=== PATIENT | female | born 1965 | race Caucasian/White ===

== ENCOUNTER 2020-07-07 05:49 | Day surgery (SDC) | payer BC, OTHER ==
[2020-07-07] MEDS ORDERED: Cyanocobalamin (Vitamin B12) 1,000 MCG/ML SDV IM ONE (06:15)
[2020-07-07] MEDS ORDERED: Propofol 200 MG/20 ML SDV ONE (06:55)
[2020-07-07] MEDS ORDERED: fentaNYL 100 MCG/2 ML SDV ONE (06:56)
[2020-07-07] MEDS ORDERED: Midazolam 1 MG/ML 2 ML SDV ONE (06:56)
[2020-07-07] MEDS ORDERED: Lactated Ringers 1,000 ML IV SCH (07:00)
[2020-07-07] MEDS ORDERED: Glycopyrrolate 0.2 MG/ML 2 ML SDV IVPUSH ONE (07:15)
[2020-07-07] MEDS ORDERED: MVI, Adult with Vitamin K 10 ML, Thiamine 200 MG, Chromium/Copper/Mang/Selen/Zn 1 ML in... IV ONE ×4 (08:00)
[2020-07-07] MEDS ORDERED: Sodium Chloride 0.9% 1,000 ML IV SCH (09:45)
[2020-07-07] MEDS ORDERED: diphenhydrAMINE 50 MG/ML SDV IVPUSH PRN (09:45)
[2020-07-07] MEDS ORDERED: Hydrocortisone Sodium Succinate 100 MG/2 ML SDV IVPUSH PRN (09:45)
[2020-07-07] MEDS ORDERED: Famotidine 20 MG/2 ML SDV IVPUSH PRN (09:45)
--- NOTE | 2020-07-15 15:35 | OR ---
DATE OF PROCEDURE: 07/07/2020 SURGEON: Ricky Singh MD PREOPERATIVE DIAGNOSIS: Weight regained status post Beatris-en-Y gastric bypass. 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 OPERATIVE PROCEDURE: Upper GI endoscopy with biopsy of gastric pouch for CLOtest. ANESTHESIA: IV sedation. INDICATION FOR PROCEDURE: This is a 55-year-old presenting with problems with weight regain status post Beatris-en-Y gastric bypass done in 2008. She had initially a very good result getting down to around 112 pounds, now it has gotten up to a BMI of over 41. To evaluate the anatomy, she should undergo an upper GI endoscopy with biopsies as indicated. Potential risks including bleeding and perforation were discussed, and the patient wishes to proceed. DETAILS OF PROCEDURE: The patient was taken to the operating room and placed in a left lateral decubitus position. IV sedation was administered, after which the upper GI endoscope was passed orally through the length of esophagus and then into the gastric pouch, and thereafter through the gastrojejunostomy. The gastric pouch itself was fairly large as was the gastrojejunostomy. However, the main finding was that of a fairly large gastrogastric fistula coming off the left side of the gastric pouch into the remainder of the stomach. The patient has a fair bit of bile coming up into the pouch as well, likely associated with the recent development of some heartburn issues. Following this, then the biopsies were obtained from the antrum and sent for CLOtest for H. pylori. Minimal bleeding from the biopsy sites was seen and the procedure then concluded. The patient was taken to the recovery room in satisfactory condition. The patient was noted to have quite a low iron, so she received iron infusion today and then . We will send insurance letter to the carrier at [employer] regarding prior authorization for revision. Ricky Singh MD /[id number]
--- NOTE | 2020-07-15 15:51 | OR ---
DATE OF PROCEDURE: 07/07/2020 SURGEON: Ricky Singh MD PREOPERATIVE DIAGNOSIS: Worsening gastroesophageal reflux disease with weight regain status post Beatris-en-Y gastric bypass. POSTOPERATIVE DIAGNOSES: 1. Worsening gastroesophageal reflux disease with weight regain status post Beatris-en-Y gastric bypass. 2. Development of gastrogastric fistula. OPERATIVE PROCEDURE: Upper gastrointestinal endoscopy with biopsies of gastric pouch for CLOtest. ANESTHESIA: IV sedation. INDICATION FOR PROCEDURE: This is a 55-year-old female status post Beatris-en-Y gastric bypass in 2008. She did well for many years and recently has had problems with significant weight regain along with development quite a bit in way of reflux symptoms. The plan is to proceed with upper GI endoscopy with biopsies as indicated. Potential risks of the procedure including bleeding and perforation were discussed, and the patient wishes to proceed. DETAILS OF PROCEDURE: The patient was taken to the operating room and placed in a left lateral decubitus position. IV sedation was administered, after which the upper GI endoscope was passed orally through the length of the esophagus into the gastric pouch and from there roughly 20 cm beyond the gastrojejunostomy. The patient noted to have some reddening of the area of the esophagogastric junction with some bile present. This was associated with a gastrogastric fistula allowing the 1 cm scope to be passed into the remainder of the previously bypassed stomach. This likely accounts for the patient's symptoms of both a heartburn in terms of bilious regurgitation as well as the weight regain. Apart from that, there were no specific other abnormalities identified. The scope was then brought back into the gastric pouch and biopsies obtained for CLOtest for H. pylori. Minimal bleeding from the biopsy sites was seen and the procedure concluded. The patient was taken to the recovery room in satisfactory condition. The patient's iron level was low, she received an iron infusion today and also will be started on Vitron-C orally, and we will contact her insurance carrier for prior authorization for revision of the gastric bypass. Ricky Singh MD /[id number]
== END 2020-07-07 10:50 | disposition home or self-care (01) ==
LOC: JP.SDS 05:49
PROVIDERS: ATTEND Surgery
DX: K31.6 Fistula of stomach and duodenum (principal); K21.9 Gastro-esophageal reflux disease without esophagitis; E61.1 Iron deficiency; I10 Essential (primary) hypertension; R63.5 Abnormal weight gain; Z68.41 Body mass index [BMI] 40.0-44.9, adult; Z98.84 Bariatric surgery status
CPT/HCPCS: 43239; 87081; J2250; J2704; J3010; J3411; J3420; J3490; J7030; J7050; J7120; Q0138

== ENCOUNTER 2020-08-13 05:31 | Inpatient (IN) | payer OTHER ==
[2020-08-13] MEDS ORDERED: Acetaminophen 500 MG Tab PO ONE (05:40)
[2020-08-13] MEDS ORDERED: Celecoxib 200 MG Cap PO ONE ×2 (05:40→06:02)
[2020-08-13] MEDS ORDERED: Scopolamine 1.5 MG Transdermal Patch TOP SCH (05:40)
[2020-08-13] MEDS ORDERED: Dextrose 5%-Lactated Ringers 1,000 ML IV SCH (06:30)
[2020-08-13] MEDS ORDERED: cefOXitin 2 GM Vial ONE (06:45)
[2020-08-13] MEDS ORDERED: fentaNYL 250 MCG/5 ML SDV ONE ×2 (07:03→08:30)
[2020-08-13] MEDS ORDERED: Propofol 200 MG/20 ML SDV ONE (07:04)
[2020-08-13] MEDS ORDERED: Glycopyrrolate 0.2 MG/ML 5 ML MDV ONE (07:04)
[2020-08-13] MEDS ORDERED: Rocuronium 50 MG/5 ML Vial ONE (07:04)
[2020-08-13] MEDS ORDERED: Neostigmine Methylsulfate 1 MG/ML 5 ML Syringe ONE (07:04)
[2020-08-13] MEDS ORDERED: Dexamethasone 4 MG/ML SDV ONE (07:04)
[2020-08-13] MEDS ORDERED: Succinylcholine 200 MG/10 ML MDV ONE (07:04)
[2020-08-13] MEDS ORDERED: Ondansetron 4 MG/2 ML SDV ONE (07:04)
[2020-08-13] MEDS: cefOXitin 2 GM in Sodium Chloride 0.9% 50 ML IV ONE ×2 (07:29→13:30)
[2020-08-13] MEDS ORDERED: Ketamine 500 MG/5 ML MDV IV SCH (08:00)
[2020-08-13] MEDS ORDERED: Ketamine 50 MG in Sodium Chloride 0.9% 49.5 ML IV SCH (08:00)
[2020-08-13] MEDS ORDERED: Magnesium Sulfate 3 GM in Sodium Chloride 0.9% 100 ML IV SCH (08:00)
[2020-08-13] MEDS ORDERED: Magnesium Sulfate 4.7 GM in Sodium Chloride 0.9% 250 ML IV ONE (08:00)
[2020-08-13] MEDS ORDERED: Labetalol 20 MG/4 ML Syringe ONE (09:39)
[2020-08-13] MEDS ORDERED: hydrOXYzine HCL 100 MG/2 ML SDV IM ONE (09:51)
[2020-08-13] MEDS ORDERED: fentaNYL 100 MCG/2 ML SDV IVPUSH ONE (10:16)
[2020-08-13] MEDS ORDERED: Ondansetron 4 MG/2 ML SDV IVPUSH ONE (10:17)
[2020-08-13] MEDS ORDERED: Cyclobenzaprine 10 MG Tab PO PRN (11:51)
[2020-08-13] MEDS: Labetalol 20 MG/4 ML Syringe IVPUSH PRN ×3 (11:59→12:19)
[2020-08-13] MEDS ORDERED: hydrOXYzine HCL 100 MG/2 ML SDV IM PRN (12:00)
[2020-08-13] MEDS ORDERED: diphenhydrAMINE 50 MG/ML SDV IVPUSH PRN (12:00)
[2020-08-13] MEDS ORDERED: Acetaminophen 500 MG Tab PO PRN (12:00)
[2020-08-13] MEDS ORDERED: Metoclopramide 10 MG/2 ML SDV IVPUSH PRN (12:00)
[2020-08-13] MEDS ORDERED: Calcium Gluconate 10% 1 GM/10 ML SDV IVPUSH PRN (12:00)
[2020-08-13] MEDS ORDERED: HYDROmorphone 1 MG/ML Syringe IV PRN (12:00)
[2020-08-13] MEDS ORDERED: HYDROmorphone 0.5 MG/0.5 ML Syringe IVPUSH PRN (12:00)
[2020-08-13] MEDS: Ondansetron 4 MG/2 ML SDV IVPUSH PRN (12:23)
[2020-08-13] MEDS: Dextrose 5%-Lactated Ringers 1,000 ML IV SCH ×2 (13:27→22:23)
[2020-08-13] MEDS ORDERED: Pantoprazole 40 MG Vial IVPUSH SCH (14:00)
[2020-08-13] MEDS: cefOXitin 2 GM in Sodium Chloride 0.9% 50 ML IV SCH ×2 (14:03→19:39)
[2020-08-13] MEDS: Acetaminophen 500 MG Tab PO SCH ×2 (14:05→22:51)
[2020-08-13] MEDS: MVI, Adult with Vitamin K 10 ML, Thiamine 200 MG, Chromium/Copper/Mang/Selen/Zn 1 ML in... IV SCH ×4 (15:59)
[2020-08-13] MEDS: Heparin Sodium 5,000 Units/ML Vial SUBCUT SCH (17:43)
[2020-08-13] MEDS: oxyCODONE 5 MG Tab PO PRN (19:31)
[2020-08-13] MEDS: Ketotifen 0.025% Ophth Soln 5 ML Bottle EYEBOTH SCH (20:06)
[2020-08-13] MEDS: traZODone 50 MG Tab PO SCH (20:06)
[2020-08-13] MEDS: Montelukast 10 MG Tab PO SCH (20:06)
[2020-08-14] MEDS: cefOXitin 2 GM in Sodium Chloride 0.9% 50 ML IV SCH ×3 (02:45→13:24)
[2020-08-14] MEDS ORDERED: Iopamidol 612 MG/ML 50 ML SDV PO STA (03:51)
[2020-08-14] MEDS: Dextrose 5%-Lactated Ringers 1,000 ML IV SCH ×2 (04:42→13:26)
[2020-08-14] MEDS: Heparin Sodium 5,000 Units/ML Vial SUBCUT SCH ×2 (05:47→17:52)
[2020-08-14] MEDS: Acetaminophen 500 MG Tab PO SCH ×3 (05:47→21:31)
[2020-08-14] MEDS ORDERED: Ondansetron 4 MG Tab.DIS PO PRN (07:37)
[2020-08-14] MEDS ORDERED: hydrOXYzine HCl 25 MG Tab PO PRN (07:38)
[2020-08-14] MEDS: Celecoxib 200 MG Cap PO SCH ×2 (08:21→21:32)
[2020-08-14] MEDS: Ketotifen 0.025% Ophth Soln 5 ML Bottle EYEBOTH SCH ×2 (08:21→21:32)
[2020-08-14] MEDS: SCOPOLAMINE PATCH CHECK TOP SCH (08:22)
[2020-08-14] MEDS: Pantoprazole 40 MG Tab.CR PO SCH (09:23)
--- NOTE | 2020-08-14 09:59 | CR ---
[facility] HISTORY: Postbariatric surgery FINDINGS: Patient swallowed water-soluble contrast. Upright views of the abdomen show no evidence of extravasation or obstruction. There is a surgical drain in the left upper quadrant. There has been cholecystectomy IMPRESSION: Status post bariatric surgery No extravasation or obstruction seen
--- NOTE | 2020-08-14 15:06 | PN ---
DATE OF SERVICE: 08/14/2020 SUBJECTIVE: Kyra is postoperative day #1. Her upper GI this morning was normal. Vital signs have been good. She has been afebrile. Oral intake on a step 1 gastric bypass diet was 1380. Urine output 5, and AMEE drain put out 105 mL of a light pink drainage. Pain has been controlled. She has no questions or concerns. OBJECTIVE: GENERAL: Kyra Rivera is a pleasant 55-year-old female. She is alert and orientated. VITAL SIGNS: TPR 98, 74, 16, blood pressure 156/75. She did receive 2 doses of labetalol immediately postop for elevated blood pressure. HEENT: Negative. NECK: Supple. HEART: Regular rate and rhythm. LUNGS: Clear. ABDOMEN: Dressings dry and intact. AMEE drain intact. Abdominal binder is on. EXTREMITIES: Without peripheral edema. ASSESSMENT: Laparoscopic revision of Beatris-en-Y gastric bypass. Date 08/13/2020. Surgeon: Ricky Singh MD. PLAN: 1. Step 2 gastric bypass diet without cereal. 2. Decrease IV to 100 mL per hour. 3. Discontinue IV Dilaudid. 4. Dressing off. May shower. 5. Discontinue cardiac monitoring and pulse oximetry. 6. Zofran ODT 4 mg every 4 hours p.r.n. nausea, vomiting. 7. Hydroxyzine 25 mg p.o. every 4 hours p.r.n. pain. 8. Continue use of incentive spirometer and ambulation. 9. We will evaluate p.r.n. or in a.m. Debbie Lima PA-C /[id number]
[2020-08-14] MEDS: MVI, Adult with Vitamin K 10 ML, Thiamine 200 MG, Chromium/Copper/Mang/Selen/Zn 1 ML in... IV SCH ×4 (15:26)
[2020-08-14] MEDS: traZODone 50 MG Tab PO SCH (21:31)
[2020-08-14] MEDS: Montelukast 10 MG Tab PO SCH (21:31)
[2020-08-14] MEDS: Ondansetron 4 MG/2 ML SDV IVPUSH PRN (21:41)
[2020-08-15] MEDS: Dextrose 5%-Lactated Ringers 1,000 ML IV SCH (01:35)
[2020-08-15] MEDS: Heparin Sodium 5,000 Units/ML Vial SUBCUT SCH (06:16)
[2020-08-15] MEDS: Acetaminophen 500 MG Tab PO SCH (06:17)
[2020-08-15] MEDS: oxyCODONE 5 MG Tab PO PRN (07:31)
[2020-08-15] MEDS: Pantoprazole 40 MG Tab.CR PO SCH (07:31)
[2020-08-15] MEDS ORDERED: Cyanocobalamin (Vitamin B12) 1,000 MCG/ML SDV IM ONE (09:00)
[2020-08-15] MEDS: SCOPOLAMINE PATCH CHECK TOP SCH (09:43)
--- NOTE | 2020-08-17 13:18 | DISCH ---
FINAL DIAGNOSIS: 1. Weight regain, status post Beatris-en-Y gastric bypass associated with gastrogastric fistula. 2. History of allergic rhinitis. 3. History of depression. 4. Vitamin D deficiency. OPERATIVE PROCEDURES: This was done on 08/13, diagnostic laparoscopy with revision of Beatris- en-Y gastric bypass consisting of; 1. Resection gastrogastric fistula. 2. Small-bowel resection. 3. Revision of the jejunojejunostomy, component of Beatris-en-Y gastric bypass. SUMMARY: This is a 55-year-old female presenting with significant weight regain, status post previous Beatris-en-Y gastric bypass. Workup included an upper endoscopy which showed a gastrogastric fistula. On the date of admission, the patient underwent the above procedures. Postoperatively, she has had no significant problems. She will be discharged home on her usual medications plus Tylenol as needed for pain. She will not be requiring any narcotics, and she will be instructed to stay on a step-2 diet until her first appointment, which will be with Debbie Lima on 08/25/2020, at [facility].
--- NOTE | 2020-08-24 08:21 | OR ---
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 OPERATIVE PROCEDURE: Diagnostic laparoscopy with revision of Beatris-en-Y gastric bypass (02571) includin. Resection of gastrogastric fistula. 2. Small-bowel resection. 3. Revision of jejunojejunostomy component of Beatris-en-Y gastric bypass. ANESTHESIA: General. RETAIL INTERIOR DESIGNER: Debbie Lima PA-C INDICATIONS FOR PROCEDURE: This is a 55-year-old, status post Beatris-en-Y gastric bypass in 2008. The patient did quite well. Recently, she was noted to have significant weight regain and on upper endoscopies was noted to have gastrogastric fistula. Plan is to proceed with diagnostic laparoscopy, laparotomy if necessary, and revision of the Beatris-en-Y gastric bypass. Potential risks of the procedure including bleeding, infection, leaks from various GI tract closures, problems with bowel obstruction over time, as well as possibility of cardiopulmonary, septic, or hemorrhagic complications leading to were discussed, and the patient wishes to proceed. DETAILS OF PROCEDURE: The patient was taken to the operating room. After general endotracheal anesthesia was induced, she was placed in a lithotomy position and the abdomen prepped and draped. 15 cm inferior and 5 cm left of the xiphoid process, transverse incision was made and the peritoneal cavity entered under direct vision with an Optiview trocar inflated to 15 mmHg pressure with CO2. Laparoscope was reinserted. No underlying trocar insertion site injuries were seen. Following this, bilateral subcostal transversus abdominis plane blocks were placed and 5 additional trocars were placed across the mid abdomen. Attention was then initially taken to the area of the gastrojejunostomy. Some adhesions between the liver and that area were taken down with Harmonic Scalpel. This then allowed placement of the Adam tube measuring 32-Beninese in size orally per Anesthesia and this was then placed across the gastric pouch and gastrojejunostomy several centimeters into the Beatris limb to act as a stent to avoid overtightening of the newly decided gastric pouch. The stomach to the left of that area was initially dissected-free posteriorly and the bypassed portion of the stomach was then divided along the edge of the gastric pouch with KOBE black load. Once this was freed up, we were then able to divide the gastric pouch more or less flush with the Adam tube from the point of the gastrojejunostomy upward to the level of the diaphragm in a portion of the stomach which would include a portion of the previous gastric pouch. Portion of the bypassed stomach as well as the underlying fistula were then delivered from the field. To facilitate greater weight loss, then the Beatris limb was mapped out and divided just proximal to the previous jejunojejunostomy. A portion of the small bowel was then resected. The Beatris limb itself at this point measured 150 cm and we then traced back from the ileocecal valve with small bowel 150 cm proximal to that point. At that point, the new jejunojejunostomy was constructed with 2 internal firings of the Endo-KOBE 60 mm stapler. Common opening was closed transversely with the same stapler and the angles anastomosed and mesenteric defect approximated with some 0 Ethibond stitch along with being reinforced with fibrin sealant. Fibrin sealant was also then used at this point to reinforce the newly formed gastric staple line. No further problems were noted at this point. The abdomen was irrigated with antibiotic-containing saline solution. Single Jarvis-Bridges drain was placed through the left lateral trocar site and the trocars were then removed and the peritoneal cavity deflated. Incisions were closed with 4-0 Vicryl skin stitch. Dressing was applied. The patient was taken to the recovery room in satisfactory condition. There were no other complications. Physician banking assistant, Debbie Lima, played an essential role in assisting in this case, helping to position the patient, retract structures as needed, as well as suturing and cutting sutures when indicated. Her presence improved patient safety and decreased operative time. Ricky Singh MD /[id number]
== END 2020-08-15 09:53 | disposition home or self-care (01) | DRG 328 ==
LOC: JP.SDS 05:31 → UNDOADMIN 05:32 → JP.MS 05:32 → EDSTATUS 08:15 → JP.MS 10:15 → JP.2SS 10:15
PROVIDERS: ADMIT Surgery; ATTEND Surgery
PROC: 0D164ZA Bypass Stomach to Jejunum, Percutaneous Endoscopic Approach (ICD-10-PCS; principal; 2020-08-13)
PROC: 0DB84ZZ Excision of Small Intestine, Percutaneous Endoscopic Approach (ICD-10-PCS; 2020-08-13)
PROC: 0DB64ZZ Excision of Stomach, Percutaneous Endoscopic Approach (ICD-10-PCS; 2020-08-13)
DX: K31.6 Fistula of stomach and duodenum (principal); F32.9 Major depressive disorder, single episode, unspecified; J30.9 Allergic rhinitis, unspecified; E55.9 Vitamin D deficiency, unspecified; Z98.84 Bariatric surgery status; G47.00 Insomnia, unspecified; Z98.890 Other specified postprocedural states; Z90.49 Acquired absence of other specified parts of digestive tract; Z88.5 Allergy status to narcotic agent; Z88.2 Allergy status to sulfonamides; Z79.899 Other long term (current) drug therapy; Z88.8 Allergy status to other drugs, medicaments and biological substances
CPT/HCPCS: 36415; 74240; 74240-26; 82728; 82962; 86850; 86900; 86901; 88304; 88307; 93005; 94762; A9270-GY; C9113; J0171; J0330; J0694; J1100; J1170; J1644; J2405; J2704; J2710; J2795; J3010; J3410; J3411; J3420; J3475; J3490; J7050; J7121; Q9967

== ENCOUNTER 2021-07-08 07:10 | Day surgery (SDC) | payer OTHER ==
[2021-07-08] MEDS ORDERED: Lactated Ringers 1,000 ML IV ONE (08:00)
[2021-07-08] MEDS ORDERED: Albumin Human 25 GM in Premix Bag 1 BAG IV SCH (08:00)
[2021-07-08] MEDS ORDERED: Sodium Chloride 0.9% 1,000 ML IV SCH (08:30)
[2021-07-08] MEDS ORDERED: Cyanocobalamin (Vitamin B12) 1,000 MCG/ML SDV IM ONE (08:30)
[2021-07-08] MEDS ORDERED: MVI, Adult with Vitamin K 10 ML, Thiamine 200 MG, Chromium/Copper/Mang/Selen/Zn 1 ML in... IV ONE ×4 (09:00)
[2021-07-08] MEDS ORDERED: Midazolam 1 MG/ML 2 ML SDV ONE (09:07)
[2021-07-08] MEDS ORDERED: Propofol 200 MG/20 ML SDV ONE (09:07)
[2021-07-08] MEDS ORDERED: fentaNYL 100 MCG/2 ML SDV ONE (09:07)
[2021-07-08] MEDS ORDERED: Glycopyrrolate 0.2 MG/ML 2 ML SDV IVPUSH ONE (09:15)
[2021-07-08] MEDS ORDERED: Dexamethasone 4 MG/ML SDV ONE (10:28)
[2021-07-08] MEDS ORDERED: Albumin Human 25 GM in Premix Bag 1 BAG IV ONE (10:30)
--- NOTE | 2021-07-14 16:25 | OR ---
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 POSTOPERATIVE DIAGNOSIS: Fairly tight stricture at gastrojejunostomy. PROCEDURE PERFORMED: Upper gastrointestinal endoscopy with dilation of gastrojejunostomy (40568). ANESTHESIA: IV sedation. INDICATION FOR PROCEDURE: This is a 56-year-old status post revision of Beatris-en-Y gastric bypass and closure of gastrogastric fistula on 08/13/2010. She presents now with symptoms suggestive of stricturing at her gastrojejunostomy. Plan is to proceed with an upper endoscopy with dilation as indicated. Potential risks including bleeding and perforation were discussed, and the patient wishes to proceed. DETAILS OF PROCEDURE: The patient was taken to the operating room and placed in a left lateral decubitus position. IV sedation was administered after which the upper GI endoscope was passed orally through the length of the esophagus and into the gastric pouch. There was a fairly tight stricture of the gastrojejunostomy. A gastrointestinal balloon catheter was centered across the anastomosis and inflated to 30-Taiwanese size. This was held in position for one minute after which the balloon catheter was deflated and withdrawn. The scope was easily passed through the anastomosis with no complications noted, and the procedure was concluded. The patient was taken to the recovery room in satisfactory condition. iRcky Singh MD /[id number]
== END 2021-07-08 12:00 | disposition home or self-care (01) ==
LOC: JP.SDS 07:10
PROVIDERS: ATTEND Surgery
DX: K91.89 Other postprocedural complications and disorders of digestive system (principal); I12.9 Hypertensive chronic kidney disease with stage 1 through stage 4 chronic kidney disease, or unspecified chronic kidney disease; N18.30 Chronic kidney disease, stage 3 unspecified; Z98.84 Bariatric surgery status
CPT/HCPCS: 43245; 81025; J1100; J2250; J2704; J3010; J3411; J3420; J3490; J7030; J7120; P9047